=== PATIENT | female | born 1980 | race Asian ===

== ENCOUNTER → 2017-06-04 | Outpatient (CLI) | payer BC ==
[~2017-06-04] MED LIST: EUTHYROX PO; OXYC-57 PO; THYROID PO
--- NOTE | 2017-06-04 13:23 | MAMMOGRAPHY REPORT ---
BILATERAL DIGITAL DIAGNOSTIC MAMMOGRAM TOMOSYNTHESIS WITH CAD AND TARGETED RIGHT ULTRASOUND: 06/04/2017 CLINICAL HISTORY: The patient reports a palpable right breast lump. This was previously evaluated in 2015 at an outside institution with mammograms and ultrasound. The patient reports she did not have a biopsy at that time. TECHNIQUE: Breast tomosynthesis in addition to standard 2D mammography was performed. Current study was also evaluated with a Computer Aided Detection (CAD) system. Bilateral CC and MLO 2-D and tomosy nthesis images were obtained. COMPARISON: Comparison is made to exam dated: 01/28/2015 mammogram and ultrasound. BREAST COMPOSITION: The tissue of both breasts is extremely dense, which lowers the sensitivity of m ammography. FINDINGS: A triangle marker brian the site of the palpable lump in the right upper outer quadrant. At the site of the palpable lump there is an oval circumscribed mass which measures 4.1 x 2.8 cm. Th e mass is increased compared to the 2015 exam. Additionally, there is an oval circumscribed 7 mm mas s in the right superior posterior breast on the MLO view which is not evident on the cc view but loca lizes to the lateral breast based on the localizer bar. The remainder of both breasts demonstrate no suspicious masses, calcifications, or areas of architectural distortion. Targeted ultrasound was performed of the palpable lump pointed out by the patient, in the right breas t at 11:00, approximately 3 cm from the nipple. At the site of the palpable lump there is an oval ci rcumscribed hypoechoic solid mass which measures 3.6 x 1.9 x 3.7 cm. This is increased compared to t he prior ultrasound exam where the mass measured 2.9 x 1.2 x 2.9 cm. This corresponds with the incre asing mammographic mass and is indeterminate giving the interval increase in size. Ultrasound guided core needle biopsy is recommended for further evaluation. In the right breast at 11:00, 7 cm from the nipple, there is an oval circumscribed anechoic mass with a few thin internal septations, measuring 8 x 3 x 8 mm. This likely corresponds with the smaller ci rcumscribed mammographic mass and is consistent with a benign cyst. Adjacent to this is an oval hypo echoic circumscribed solid appearing 5 x 2 x 5 mm mass. Additionally, there is a hypoechoic solid-ap pearing circumscribed 5 x 3 x 6 mm mass in the right 10:00 breast, 6 cm from the nipple. These 2 sma ller solid appearing masses appear similar morphologically to the larger palpable lump. IMPRESSION: ACR BI-RADS CATEGORY 4: SUSPICIOUS, TARGETED ULTRASOUND ACR BI-RADS CATEGORY 4: SUSPICIO US 1. Interval increase in size of palpable right 11:00 hypoechoic solid breast mass, now measuring 3.7 cm. The mass is indeterminate and ultrasound-guided core needle biopsy is recommended for further e valuation. This may represent a fibroadenoma, with differential also including a phyllodes tumor. 2. Two smaller 5 and 6 mm hypoechoic masses in the right 10 and 11:00 breast. The masses are probab ly benign and may represent fibroadenomas. If pathology results of the breast biopsy are benign, the n recommend short interval follow-up ultrasound and possible mammograms of the right breast in 6 chris hs to confirm stability of these masses. 3. Small 8 mm benign cyst in the right 11:00 breast, which corresponds with a mammographic mass. A phone call was made to the physician's office to confirm faxed results were received. The patient has been verbally notified of the results. She tentatively scheduled the biopsy before leaving the [facility]. Approximately 10% of breast cancers are not detected with mammography. A negative mammographic report should not delay biopsy if a clinically suggestive mass is present. Nadiya Potts M.D. ah/:06/04/2017 11:28:52 Client Relationship Consultant: Tanisha Wyman, [facility] letter sent: Abnormal 4/5 BI-RADS Code: ACR BI-RADS Category 4: Suspicious Ultrasound BI-RADS: ACR BI-RADS Category 4: Suspici ous
== END | disposition home or self-care (01) ==
LOC: C.MAMM 09:46
PROVIDERS: ATTEND Physician Assistant
DX: N63 Unspecified lump in breast (principal); N60.01 Solitary cyst of right breast

== ENCOUNTER → 2017-06-11 | Outpatient (CLI) | payer BC ==
--- NOTE | 2017-06-11 10:00 | Discharge Instructions ---
Discharge Instructions Procedure Procedure Date: Jun 11, 2017. Reason for visit: Right Mass. Discharge Discharge Date: Jun 11, 2017. Discharge Diagnosis: status post breast biopsy Instructions Activity Recommendations: Additional Limitations (see below) Return to School/Work: no limitations Recommended Home Diet: No Limitations Provider Instructions: ACTIVITY RECOMMENDATIONS: * No lifting, pushing, pulling or exercising the affected side for three days. RETURN TO SCHOOL/WORK: * You may return to work/school after the procedure, but do not perform any strenuous activities for 24 to 48 hours. MEDICATIONS: * Tylenol (two 325 mg) every four to six hours if needed for mild pain (if not allergic to Tylenol). DIET: * Resume previous diet. SPECIAL CARE INSTRUCTIONS: * Keep biopsy site dry for 24 hours. May shower after 24 hours, but do not soak (bathe) incision. * May remove Tegaderm (plastic patch) tomorrow AFTER showering. * Leave the steri-strips on for one week. Allow the steri-strips to fall off by themselves. If not off after one week, you may remove them. You may place a Bandaid crosswise over the strips, if desired. * Apply ice 10 minutes on and 10 minutes off as needed. * Wear a bra at bedtime to sleep more comfortably for 2-3 days. * Your referring physician should have the results after approximately 5 to 7 business days. * Call for unusual bleeding, fever, drainage, etc or if you have any questions call during normal business hours or after hours call Dr Potts, . FOLLOW UP VISIT: Follow-up with Referring Physician as scheduled. Ulises Rosa Recommendations: Call your doctor if: * Temperature above 101 degrees * Pain not relieved by pain medicine ordered * There is increased drainage or redness from any incision * You have any unanswered questions or concerns. Your Doctors Instructions noted above were prepared by provider Nadiya Potts. Patient Signature Section: Patient Instructions Signature Page Lauren Donald Patient (or Guardian) Signature/Date: I have read and understand the instructions given to me by my caregivers. Caregiver/RN/Doctor Signature/Date: The above-named patient and/or guardian has received patient instructions on this date. + Original Patient Signature Page (only) stays with chart. Please make copy for patient.
--- NOTE | 2017-06-11 13:59 | MAMMOGRAPHY REPORT ---
UNILATERAL RIGHT DIGITAL DIAGNOSTIC MAMMOGRAM TOMOSYNTHESIS: 06/11/2017 CLINICAL HISTORY: Status post right breast ultrasound-guided biopsy. TECHNIQUE: Breast tomosynthesis in addition to standard 2D mammography was performed. Postprocedura l right CC and ML tomosynthesis images including C views were obtained. COMPARISON: Comparison is made to exams dated: 06/04/2017 ultrasound, 06/04/2017 mammogram - [facility], and 01/28/2015 mammogram. BREAST COMPOSITION: The tissue of the right breast is extremely dense, which lowers the sensitivity of mammography. FINDINGS: A new biopsy marker clip is seen within the dominant biopsied mass in the right 11:[address] No significant postbiopsy hematoma is seen. IMPRESSION: POST PROCEDURE IMAGING FOR MARKER PLACEMENT New biopsy marker clip status post ultrasound guided biopsy of the right 11:00 breast mass. Patholog y results are pending. Approximately 10% of breast cancers are not detected with mammography. A negative mammographic report should not delay biopsy if a clinically suggestive mass is present. Nadiya Potts M.D. ah/:06/11/2017 10:15:07 Teacher Lip Reading: Hali DOLAN(Roderick)(M), [facility] BI-RADS Code: Post Procedure Imaging For Marker Placement
--- NOTE | 2017-06-11 13:59 | MAMMOGRAPHY REPORT ---
THIS REPORT HAS BEEN AMENDED. ULTRASOUND GUIDED BIOPSY RIGHT BREAST: 06/11/2017 CLINICAL HISTORY: Right 11:00 breast mass. PATIENT CONSENT: The procedure, risks and benefits were discussed with the patient and informed writt en consent was obtained. A timeout was performed immediately prior to the procedure. PROCEDURE DESCRIPTION: With ultrasound guidance, aseptic technique, and lidocaine as the local anesth etic (1% lidocaine to anesthetize the skin and 1% lidocaine with epinephrine to anesthetize the deepe r tissues), the mass of concern in the right 11:00 breast was sampled 4 times with a 14-gauge Achieve biopsy needle. Immediately thereafter, with ultrasound guidance, aseptic technique, and lidocaine as the local anesthetic, a metallic localizer clip was placed centrally in the mass. Direct pressure w as applied to the site immediately post procedure and hemostasis was achieved. Postprocedure unilate ral mammograms were performed to confirm placement of the clip in the expected location of the breast mass. The patient tolerated the procedure without complication. She was given wound care instructi ons. The specimens were sent to pathology for analysis. COMPARISON: Comparison is made to exams dated: 06/04/2017 ultrasound, 06/04/2017 mammogram - [facility], and 01/28/2015 mammogram. IMPRESSION: ULTRASOUND GUIDED BIOPSY Ultrasound guided core needle biopsy of the dominant right 11:00 breast mass, with clip placement. T he patient will receive pathology results from her referring provider. Pending benign pathology resu lts, recommend follow-up ultrasound and possible mammograms of the right breast in 6 months to confir m stability of other smaller hypoechoic masses in the right 10 and 11:00 breast. Nadiya Potts M.D. ah/:06/11/2017 10:02:13 Attending Technologist: Hali Spaulding RT(R)(M), [facility] Metalworking Specialist: Nadiya Potts MD, [facility] AMENDMENT: 06/16/2017 Nadiya Potts M.D. Pathology results from ultrasound guided biopsy of a right 11:00 breast mass were reviewed on 06/16/20 17. 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 Surgical excision was recommended by the pathologist. The patholog y is concordant with the imaging findings. Recommend surgical excision for further evaluation. Kenan tionally, recommend follow-up ultrasound and possible mammograms of the right breast in 6 months to r eevaluate the other smaller 5 and 6 mm hypoechoic masses in the right 10 and 11:00 breast which are p robably benign and likely represent fibroadenomas.
== END | disposition home or self-care (01) ==
LOC: C.MAMM 09:21
PROVIDERS: ATTEND Physician Assistant
DX: D24.1 Benign neoplasm of right breast (principal)

== ENCOUNTER → 2017-07-23 | Day surgery (SDC) | payer BC ==
[2017-07-16 13:54] VITALS: Ht 162.6 cm; Wt 54.5 kg
[~2017-07-23] VITALS: Ht 162.6 cm; Wt 54.5 kg
[~2017-07-23] MED LIST changes: +ATROPINE SULFATE 0.1 MG/ML 5ML SYR IV PRN; +BUPIVACAINE 0.5 % 5 MG/1 ML MPF 30ML VIAL ONE; +DEXAMETHASONE SOD INJ 4 MG/ML VIAL IV PRN; +DEXAMETHASONE SOD INJ 4 MG/ML VIAL ONE; +EpHEDrine SULFATE INJ 50 MG/ML AMP IV PRN; +FENTANYL CITRATE INJ 50 MCG/1 ML 2 ML VIAL IV PRN; +FENTANYL CITRATE INJ 50 MCG/1 ML 2 ML VIAL ONE; +KETOROLAC TROMETHAMINE 30 MG/ML VIAL IV. PRN; +LABETALOL HCL IV 5 MG/ML 20ML IV PRN; +LACTATED RINGER'S 1000ML 1,000 ML IV SCH; +LIDOCAINE HCL 2% 2 ML VIAL (20MG/ML) ONE; +METOCLOPRAMIDE HCL INJ 5 MG/ML 2 ML VIAL IV PRN; +MIDAZOLAM HCL 1 MG/ML 2ML VIAL ONE; +MoRPHine SULFATE 10 MG/ML CARP/VIAL IV PRN; +ONDANSETRON INJ 2 MG/ML 2 ML VIAL IV PRN; +ONDANSETRON INJ 2 MG/ML 2 ML VIAL ONE; +OXYCODONE/ACETAMINOPHEN 5-325 TAB PO PRN; +PHENYLEPHRINE 100MCG/ML 5ML SYR IV PRN; +PROPOFOL IV EMULSION 10 MG/ML 20 ML VIAL IV ONE; +SODIUM CHLORIDE 0.9% 1000ML 1,000 ML IV SCH; -THYROID PO
--- NOTE | 2017-07-23 07:07 | History & Physical Bridge - SC ---
H&P Re-Evaluation Bridge Note: I have examined the patient, reviewed the History & Physical and in the interval since the performance of the History & Physical I have noted the following changes of clinical significance: No changes noted
--- NOTE | 2017-07-23 08:06 | [facility] Post Operative Brief Note ---
Immediate Operative Summary Operative Date Jul 23, 2017. Pre-Operative Diagnosis Right Breast Mass Post-Operative Diagnosis Same as pre-op Procedure(s) Performed Right Breast Excisional Biopsy Surgeon Dr. Casey Airborne Weapons Technical Manager Surgeon(s) Arabella Salas PA-C Estimated Blood Loss 4ML Findings 5cm mass removed, oriented, hemostasis good. Specimens A. Right breast mass short suture=superior long suture=lateral blue mary=deep Drains none Anesthesia general Complication(s) None Disposition Recovery Room / PACU
--- NOTE | 2017-07-23 08:14 | Discharge Instructions-SurgCtr ---
Discharge Instructions Date of Service Jul 23, 2017. Visit Reason for Visit: Right Breast Lump Or Mass Discharge Discharge Diagnosis / Problem: Right Breast Lump or Mass Discharge Goals Goal(s): Decrease discomfort, Improve function Activity Recommendations Activity Limitations: as noted below Lifting Limitations: no more than 10 pounds Exercise/Sports Limitations: until after follow-up appointment May Resume Sexual Activity: after follow-up appointment Shower/Bathe: tomorrow Driving or Machine Use: resume 1 day after discharge Anesthesia . Post Anesthesia Instructions: If you have had General Anesthesia or IV Sedation: * Do not drive today. * Resume driving when surgeon permits. * Do not make important decisions or sign legal documents today. * Call surgeon for: 1. Temperature elevations greater than 101 degrees F. 2. Uncontrollable pain. 3. Excessive bleeding. 4. Persistent nausea and vomiting. 5. Medication intolerance (nausea, vomiting or rash). * For nausea and vomiting use only clear liquids such as: tea, soda, bouillon until nausea subsides, then gradually increase diet as tolerated. * If you have any concerns or questions, call your surgeon's office. If physician is unavailable and it is an emergency, call 911 or go to the nearest emergency room. . Instructions / Follow-Up Instructions / Follow-Up Post-operatively it is recommended that you wear a sports bra. Please follow-up with Dr. Casey in the office in 1-2 weeks. Please call the office at [phone] to make an appointment if you do not have one already. Please call the office with any questions or concerns. Diet Recommendations Home Diet: no limitations, resume previous diet Procedures Procedures Performed: Right Breast Excisional Biopsy Pending Studies Studies pending at discharge: yes List of pending studies: Pathology report. Medical Emergencies . Who to Call and When: Medical Emergencies: If at any time you feel your situation is an emergency, please call 911 immediately. . Non-Emergent Contact Non-Emergency issues call your: Primary Care Provider, Surgeon Call Non-Emergent contact if: temperature is above 101.5, your pain is not controlled, wound has increased drainage, wound has increased redness . . "Provider Documentation" section prepared by Arabella Salas. . [place] Drug Monitoring Program Search Results: patient reviewed within database, no issues identified
--- NOTE | 2017-07-23 08:17 | [facility] Operative Report ---
Operative Report Operative Date Jul 23, 2017. Pre-Operative Diagnosis Right Breast Mass Post-Operative Diagnosis Same as pre-op Procedure(s) Performed Right Breast Excisional Biopsy Surgeon Dr. Casey Trapeze Artist Surgeon(s) Arabella Salas PA-C Estimated Blood Loss 4ML Findings 5cm mass removed, oriented, hemostasis good. Specimens A. 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 Surgical excision was recommended by the pathologist. The risks of the procedure were reviewed, all questions answered, and the patient agreed to proceed with surgery as planned. Description of Procedure The patient was appropriately identified, consented, and taken to the operating room and placed in the supine position. General anesthesia was induced. SCD's and a safety belt were placed, and the patient's right breast was prepped and draped in the standard sterile fashion. Surgical timeout performed. A partial circumareolar incision was made with electrocautery and deepened down through the subcutaneous tissue. Skin flaps raised in all directions. The mass was circumferentially dissected, excised, and passed off the table as specimen. The specimen was oriented. Hemostasis was achieved within the wound , and the wound was irrigated. Local anesthetic was injected around the wound. The wound was closed with 3-0 vicryl deep dermal sutures followed by 4-0 monocryl subcuticular sutures. Dermabond was placed over the incision. The patient was extubated in the operating room and taken to the PACU where she recovered without incident. All sponge, instrument and needle counts were correct. The patient tolerated the procedure well. I attest to the content of the Intraoperative Record and any orders documented therein. Any exceptions are noted below.
--- NOTE | 2017-07-23 08:49 | Anesthesia Progress Nt - [facility] ---
Anesthesia Post Op Note Date & Time Jul 23, 2017 at 08:49 Vital Signs Pain Intensity: 0 Vital Signs Past 12 Hours Date Time Temp Pulse Resp B/P (MAP) Pulse Ox O2 Delivery O2 Flow Rate FiO2 07/23/17 08:42 55 15 100 07/23/17 08:42 59 15 07/23/17 08:41 113/69 07/23/17 08:40 36.4 57 20 113/69 100 Room Air 07/23/17 08:38 53 11 07/23/17 08:38 52 11 99 07/23/17 08:37 55 26 07/23/17 08:37 54 26 99 07/23/17 08:36 113/76 07/23/17 08:32 56 13 07/23/17 08:32 57 13 100 07/23/17 08:31 62 12 07/23/17 08:31 61 12 109/75 100 07/23/17 08:30 65 20 07/23/17 08:30 64 20 100 07/23/17 08:26 114/76 07/23/17 08:25 60 15 07/23/17 08:25 60 15 100 07/23/17 08:21 112/74 07/23/17 08:20 60 9 07/23/17 08:20 61 9 100 07/23/17 08:19 59 12 07/23/17 08:19 60 12 100 07/23/17 08:16 118/73 07/23/17 08:14 63 16 100 07/23/17 08:14 63 16 07/23/17 08:11 108/76 07/23/17 08:10 108/74 07/23/17 08:09 36.6 74 16 108/74 100 Room Air 07/23/17 06:45 36.7 85 16 112/75 (87) 99 Room Air Notes Mental Status: alert / awake / arousable, participated in evaluation Pt Amnestic to Procedure: Yes Nausea / Vomiting: adequately controlled Pain: adequately controlled Airway Patency, RR, SpO2: stable & adequate BP & HR: stable & adequate Hydration State: stable & adequate Anesthetic Complications: no major complications apparent
[2017-07-23 09:51] VITALS: BP 108/68; PULSE 58; TEMP 36.5; O2SAT 100
== END | disposition home or self-care (01) ==
LOC: X.SURG 06:18
PROVIDERS: ATTEND Surgery
DX: D24.1 Benign neoplasm of right breast (principal); E07.9 Disorder of thyroid, unspecified